=== PATIENT | female | born 1990 | race Caucasian/White ===

== ENCOUNTER 2022-12-26 17:20 | Emergency (ER) | payer OTHER ==
[~2022-12-26] VITALS: Ht 149.9 cm; Wt 70.5 kg
[2022-12-26 17:26] VITALS: TEMP 98.2
[2022-12-26 20:22] VITALS: BP 110/75; PULSE 85
== END 2022-12-26 20:22 | disposition home or self-care (01) ==
LOC: COL.ER 17:20
DX: S00.93XA Contusion of unspecified part of head, initial encounter (principal); S10.93XA Contusion of unspecified part of neck, initial encounter; W21.02XA Struck by soccer ball, initial encounter; Y93.66 Activity, soccer